=== PATIENT | female | born 1990 | race Two or more races ===

== ENCOUNTER 2019-11-10 09:26 | Outpatient (CLI) | payer OTHER ==
[~2019-11-10] VITALS: Ht 160 cm; Wt 93.6 kg
[2019-11-10 09:55] VITALS: BP 128/74
[2019-11-11] MEDS ORDERED: PREN1TAB60 PO (23:44)
== END 2019-11-10 11:27 | disposition home or self-care (01) ==
LOC: LDOP 09:26
PROVIDERS: ATTEND Obstetrics & Gynecology
DX: O26.893 Other specified pregnancy related conditions, third trimester (principal); R10.9 Unspecified abdominal pain; Z3A.37 37 weeks gestation of pregnancy
CPT/HCPCS: 59025

== ENCOUNTER 2019-11-11 23:20 | Inpatient (IN) | payer OTHER ==
[~2019-11-11] VITALS: Ht 160 cm; Wt 94.3 kg
[2019-11-11 23:30] VITALS: BP 131/76
[2019-11-11] MEDS ORDERED: PREN1TAB60 PO (23:44)
[2019-11-12] MEDS: D5%-LACTATED RINGERS 1,000 ML IV SCH ×3 (00:42→16:42)
[2019-11-12] MEDS ORDERED: OXYTOCIN 30U/ 0.9% NaCL 500ML 500 ML IV ONE (00:42)
[2019-11-12] MEDS ORDERED: FENTANYL/BUPIV./NS/PF 250 ML EPIDCONT SCH ×2 (00:50→02:09)
[2019-11-12] MEDS ORDERED: ONDANSETRON 2MG/ML, 2ML IVPush PRN ×2 (01:00→02:30)
[2019-11-12] MEDS ORDERED: TERBUTALINE 1 MG/ML, 1ML SQ PRN (01:00)
[2019-11-12] MEDS ORDERED: TERBUTALINE 1 MG/ML, 1ML IVPush PRN (01:00)
[2019-11-12] MEDS: LACTATED RINGERS 1,000 ML IV SCH ×3 (01:05→16:42)
[2019-11-12] MEDS ORDERED: LIDOCAINE 1%, 20ML ONE ×2 (01:13→01:51)
[2019-11-12] MEDS ORDERED: MISOPROSTOL 200 MCG TABLET ONE (01:13)
[2019-11-12] MEDS ORDERED: FENTANYL PF 100 MCG/2ML ONE ×2 (01:13→01:51)
[2019-11-12] MEDS ORDERED: OXYTOCIN 30U/ 0.9% NaCL 500ML 500 ML ONE (01:14)
[2019-11-12] MEDS ORDERED: NEWBORN KIT ONE (01:21)
[2019-11-12] MEDS ORDERED: FENTANYL PF 100 MCG/2ML IVPush PRN (01:30)
[2019-11-12 01:37] LABS: BASOPHILS # (AUTO) 0.04 x10^3/uL (0-0.1); BASOPHILS % (AUTO) 0 % (0-1); EOSINOPHILS % (AUTO) 1 % (1-7); LYMPHOCYTES # (AUTO) 1.71 x10^3/uL (1-3.4); LYMPHOCYTES % (AUTO) 12 % (22-44); MD NO; MEAN CORPUSCULAR HEMOGLOBIN 30.4 pg (27.0-34.8); MEAN CORPUSCULAR HGB CONC 33.7 g/dL (32.4-35.8); MEAN CORPUSCULAR VOLUME 90.2 fL (80-100); MEAN PLATELET VOLUME 9.9 fL (7.4-10.4); MONOCYTES # (AUTO) 0.71 x10^3/uL (0.2-0.8); MONOCYTES % (AUTO) 5 % (2-9); NEUTROPHILS # (AUTO) 11.23 x10^3/uL (1.8-6.8); NEUTROPHILS % (AUTO) 81 % (42-75); PLATELET COUNT 225 x10^3/uL (130-400); RED BLOOD COUNT 4.61 x10^6/uL (3.82-5.3); RED CELL DISTRIBUTION WIDTH 14.1 % (9.6-15.2)
[2019-11-12] MEDS ORDERED: FENTANYL/BUPIV./NS/PF 250 ML EPIDCONT ONE ×2 (01:48→01:51)
[2019-11-12] MEDS ORDERED: BUPIVACAINE 0.25% ONE ×2 (01:48→01:51)
[2019-11-12] MEDS ORDERED: LIDOCAINE/PF 1.5%-EPI 1:200K, 30ML ONE (01:51)
[2019-11-12] MEDS ORDERED: LACTATED RINGERS 1,000 ML IV SCH (02:09)
[2019-11-12] MEDS ORDERED: EPHEDRINE 50 MG/ML, 1ML IVPush PRN (02:30)
[2019-11-12] MEDS ORDERED: LACTATED RINGERS 1,000 ML IVBOLUS PRN (02:30)
[2019-11-12] MEDS ORDERED: DIPHENHYDRAMINE 50 MG/ML, 1ML IVPush PRN (02:30)
[2019-11-12] MEDS ORDERED: NALOXONE 0.4 MG/ML, 1ML IVPush PRN (02:30)
[2019-11-12] MEDS ORDERED: OXYTOCIN 30U/ 0.9% NaCL 500ML 500 ML IV PRN (03:53)
[2019-11-12] MEDS: OXYTOCIN 30U/ 0.9% NaCL 500ML 500 ML IV SCH (18:56)
[2019-11-12] MEDS ORDERED: ONDANSETRON 2MG/ML, 2ML IV PRN (19:00)
[2019-11-12] MEDS ORDERED: OXYcodone IR 5MG TABLET PO PRN (19:00)
[2019-11-12] MEDS ORDERED: DOCUSATE 100 MG CAPSULE PO PRN (19:00)
[2019-11-12] MEDS ORDERED: MISOPROSTOL 200 MCG TABLET PR PRN (19:00)
[2019-11-12] MEDS ORDERED: OXYcodone/APAP 5/325MG TABLET PO PRN (19:00)
[2019-11-12] MEDS ORDERED: ACETAMINOPHEN 325 MG TABLET PO PRN (19:00)
[2019-11-12] MEDS ORDERED: SIMETHICONE 80 MG CHEW TAB PO PRN (19:00)
[2019-11-12 20:50] VITALS: BP 116/78
[2019-11-13] MEDS: LACTATED RINGERS 1,000 ML IV SCH ×3 (00:42→16:42)
[2019-11-13] MEDS: D5%-LACTATED RINGERS 1,000 ML IV SCH ×3 (00:42→16:42)
[2019-11-13 01:00] VITALS: BP 110/70
[2019-11-13] MEDS: OXYTOCIN 30U/ 0.9% NaCL 500ML 500 ML IV SCH ×2 (04:56→14:56)
[2019-11-13 05:10] VITALS: BP 103/68
[2019-11-13] MEDS: IBUPROFEN 600 MG TABLET PO PRN ×2 (05:20→14:28)
[2019-11-13 06:06] LABS: MEAN CORPUSCULAR HEMOGLOBIN 29.9 pg (27.0-34.8); MEAN CORPUSCULAR HGB CONC 32.8 g/dL (32.4-35.8); MEAN CORPUSCULAR VOLUME 91.4 fL (80-100); MEAN PLATELET VOLUME 9.1 fL (7.4-10.4); PLATELET COUNT 227 x10^3/uL (130-400); RED BLOOD COUNT 4.49 x10^6/uL (3.82-5.3); RED CELL DISTRIBUTION WIDTH 14.2 % (9.6-15.2)
[2019-11-13 06:51] LABS: BASOPHILS # (AUTO) 0.02 x10^3/uL (0-0.1); BASOPHILS % (AUTO) 0 % (0-1); EOSINOPHILS # (AUTO) 0.02 x10^3/uL (0-0.4); EOSINOPHILS % (AUTO) 0 % (1-7); LYMPHOCYTES # (AUTO) 2.03 x10^3/uL (1-3.4); LYMPHOCYTES % (AUTO) 10 % (22-44); MD SCAN; MONOCYTES # (AUTO) 1.31 x10^3/uL (0.2-0.8); MONOCYTES % (AUTO) 7 % (2-9); NEUTROPHILS # (AUTO) 16.87 x10^3/uL (1.8-6.8); NEUTROPHILS % (AUTO) 83 % (42-75)
[2019-11-13 07:20] VITALS: BP 118/76
[2019-11-13] MEDS ORDERED: PRENATAL VIT/IRON/FA 1 EACH TABLET PO SCH (09:00)
[2019-11-13] MEDS ORDERED: IBUP-1840 PO (11:31)
[2019-11-13] MEDS ORDERED: IBUP-1222 PO (11:33)
[2019-11-13 12:05] VITALS: BP 118/76
[2019-11-13] MEDS ORDERED: MEASLES,MUMPS&RUBELLA VACC/PF 0.5 ML SQ-VACC ONE ×2 (15:00→22:18)
[2019-11-13 16:20] VITALS: BP 116/79
== END 2019-11-13 18:45 | disposition home or self-care (01) | DRG 807 ==
LOC: LDOP 23:20 → LDIP 11-12 00:40 → 2NW 11-12 20:28
PROVIDERS: ADMIT Obstetrics & Gynecology; ATTEND Obstetrics & Gynecology
PROC: 10E0XZZ Delivery of Products of Conception, External Approach (ICD-10-PCS; principal; 2019-11-12)
PROC: 0KQM0ZZ Repair Perineum Muscle, Open Approach (ICD-10-PCS; 2019-11-12)
DX: O80 Encounter for full-term uncomplicated delivery (principal); Z37.0 Single live birth; O70.1 Second degree perineal laceration during delivery; Z3A.38 38 weeks gestation of pregnancy
CPT/HCPCS: 36415; 85025; 86592; 86850; 86900; G0378; J3010; J3490; J2590; J7120

== ENCOUNTER 2020-01-05 01:27 | Emergency (ER) | payer OTHER ==
[~2020-01-05] VITALS: Ht 160 cm; Wt 87.9 kg
[~2020-01-05 01:27] MED LIST: IBUP-1222 PO; IBUP-1840 PO; PREN1TAB60 PO
[2020-01-05 01:40] VITALS: BP 115/71
== END 2020-01-05 03:31 | disposition home or self-care (01) ==
LOC: ED 03:14
DX: S60.212A Contusion of left wrist, initial encounter (principal); V29.59XA Motorcycle passenger injured in collision with other motor vehicles in traffic accident, initial encounter; Y93.89 Activity, other specified; Y92.410 Unspecified street and highway as the place of occurrence of the external cause; Y99.8 Other external cause status
CPT/HCPCS: 99284